=== PATIENT | male | born 1930 | race Caucasian/White ===

== ENCOUNTER 2016-04-22 09:11 | Outpatient (CLI) | payer MEDICARE, OTHER | END 2016-04-22 09:12 | disposition home or self-care (01) | DX: M19.071 Primary osteoarthritis, right ankle and foot (principal) ==

== ENCOUNTER 2017-06-08 08:00 | Outpatient (CLI) | payer MEDICARE, OTHER ==
[2017-06-08 12:40] LABS: BILIRUBIN,URINE NEGATIVE (NEGATIVE); GLUCOSE, URINE (UA) NEGATIVE (NEGATIVE); KETONES,URINE (UA) NEGATIVE (NEGATIVE); LEUKOCYTE ESTERASE, URINE NEGATIVE (NEGATIVE); NITRITE,URINE NEGATIVE (NEGATIVE); OCCULT BLOOD,URINE NEGATIVE (NEGATIVE); PROTEIN,URINE NEGATIVE (NEGATIVE); UROBILINOGEN,URINE 0.2 (NORMAL) E.U./dL (NORMAL)
[2017-06-08 12:42] LABS: CLARITY,URINE CLEAR (CLEAR)
[2017-06-08 12:53] LABS: BASOPHILS % (AUTO) 0.6 %; EOSINOPHILS # (AUTO) 0.3 10^3/uL (0.0-0.7); EOSINOPHILS % (AUTO) 4.9 %; HGB - HEMOGLOBIN 15.1 g/dL (14.0-18.0); LYMPHOCYTES # (AUTO) 1.4 10^3/uL (1.5-3.5); LYMPHOCYTES % (AUTO) 24.9 %; MEAN CORPUSCULAR HEMOGLOBIN 32.5 pg (27.0-31.0); MEAN CORPUSCULAR HGB CONC 33.5 g/dL (32.0-36.0); MEAN CORPUSCULAR VOLUME 97.1 fL (80.0-94.0); MEAN PLATELET VOLUME 8.6 fL (7.4-11.4); MONOCYTES # (AUTO) 0.6 10^3/uL (0.0-1.0); MONOCYTES % (AUTO) 9.8 %; NEUTROPHILS # (AUTO) 3.5 10^3/uL (1.5-6.6); NEUTROPHILS % (AUTO) 59.8 %; PLT - PLATELET COUNT 185 10^3/uL (130-450); RED BLOOD COUNT 4.63 10^6/uL (4.70-6.10); RED CELL DISTRIBUTION WIDTH 14.3 % (12.0-15.0); WHITE BLOOD COUNT 5.8 x10^3/uL (4.8-10.8)
[2017-06-08 13:11] LABS: ALBUMIN 4.2 g/dL (3.2-5.5); ALBUMIN/GLOBULIN RATIO 1.4 (1.0-2.2); ALKALINE PHOSPHATASE 33 IU/L (42-121); ALT ALANINE AMINOTRANSFERASE 16 IU/L (10-60); AST ASPARTATE AMINOTRANSFERASE 26 IU/L (10-42); BILIRUBIN,TOTAL 0.7 mg/dL (0.2-1.0); BUN - BLOOD UREA NITROGEN 35 mg/dL (6-20); CALCIUM 10.1 mg/dL (8.5-10.3); CARBON DIOXIDE - CO2 29 mmol/L (21-32); CHLORIDE 98 mmol/L (101-111); CHOL/HDL RATIO 2.9 (<5.0); CHOLESTEROL 140 mg/dL; CK- CREATINE KINASE 94 IU/L (22-269); CREATININE 1.5 mg/dL (0.6-1.2); GFR - MDRD 45 (>89); GLUCOSE 110 mg/dL (70-100); HDL CHOLESTEROL 49 mg/dL; LDL CHOLESTEROL,CALCULATED 80 mg/dL; LDL/HDL RATIO 1.6 (<3.6); SODIUM 133 mmol/L (135-145); TOTAL PROTEIN 7.3 g/dL (6.7-8.2); VLDL CHOLESTEROL 11 mg/dL
[2017-06-08 13:50] LABS: HB2 TOTAL 16.3 g/dL; HEMOGLOBIN A1C 0.62 g/dL; HEMOGLOBIN A1C % 5.6 % (4.6-6.2)
== END 2017-06-08 08:01 | disposition home or self-care (01) ==
LOC: LAB.N 08:00
PROVIDERS: ATTEND Internal Medicine
DX: I10 Essential (primary) hypertension (principal); H91.90 Unspecified hearing loss, unspecified ear; R01.1 Cardiac murmur, unspecified; K21.9 Gastro-esophageal reflux disease without esophagitis; K57.90 Diverticulosis of intestine, part unspecified, without perforation or abscess without bleeding; N40.0 Benign prostatic hyperplasia without lower urinary tract symptoms; E78.5 Hyperlipidemia, unspecified; R73.9 Hyperglycemia, unspecified; C80.1 Malignant (primary) neoplasm, unspecified; Z79.899 Other long term (current) drug therapy
CPT/HCPCS: 36415; 80053; 80061; 81001; 81003; 82550; 83036; 83721; 84443; 85025; 87086

== ENCOUNTER 2017-07-04 14:26 | Outpatient (CLI) | payer MEDICARE, OTHER ==
[2017-07-04 13:37] LABS: PSA FREE 1.54 ng/mL (0.16-2.81)
[2017-07-04 13:44] LABS: PSA TOTAL 4.28 ng/mL (0.000-2.000)
== END 2017-07-04 14:27 | disposition home or self-care (01) ==
LOC: LAB.N 14:26
PROVIDERS: ATTEND Internal Medicine
DX: Z12.5 Encounter for screening for malignant neoplasm of prostate (principal)
CPT/HCPCS: 36415; 84153; 84154

== ENCOUNTER 2018-09-27 14:52 | Emergency (ER) | payer MEDICARE, OTHER ==
[2018-09-27 15:03] VITALS: BP 163/76
--- NOTE | 2018-09-27 15:19 | ED Physician Documentation ---
History of Present Illness - Stated complaint Stated Complaint: KEEPS FALLING/LOSS OF BALANCE - Chief complaint Chief Complaint: General - History obtained from History obtained from: Patient - History of Present Illness Timing: Other (This is a pretty healthy 87-year-old daiana who lives in a trailer alone. He has noticed for the last month that he has had increasing falls because of poor balance. He has progressed to the point where he says he is falling about every day, but he denies any injuries, he says "every little boy knows how to fall correctly." He denies associated weakness, numbness, t ingling, dizziness, weight loss, headache, incontinence. He started using a cane over the last few days.) Review of Systems Ten Systems: 10 systems reviewed and negative Constitutional: denies: Fever, Chills Throat: denies: Dental pain / toothache, Sore throat Cardiac: denies: Chest pain / pressure, Palpitations Respiratory: denies: Dyspnea, Cough GI: denies: Abdominal Pain, Nausea, Vomiting PD PAST MEDICAL HISTORY - Past Medical History Cardiovascular: Hypertension, High cholesterol - Past Surgical History Past Surgical History: Yes General: Appendectomy - Present Medications Home Medications: Ambulatory Orders Medication Instructions Recorded Confirmed Enalapril [Vasotec] 5 mg PO DAILY 07/24/14 07/24/14 Simvastatin 20 mg PO DAILY 07/24/14 07/24/14 predniSONE [Deltasone] 40 mg PO DAILY 5 Days tablet 07/24/14 - Allergies Allergies/Adverse Reactions: Allergies Allergy/AdvReac Type Severity Reaction Status Date / Time No Known Drug Allergies Allergy Verified 09/27/18 15:02 - Social History Does the pt smoke?: No Smoking Status: Never smoker Does the pt drink ETOH?: No Does the pt have substance abuse?: No - Immunizations Immunizations are current?: Yes PD ED PE NORMAL - Vitals Vital signs reviewed: Yes - General General: Alert and oriented X 3, Other (Slow gait, using a cane.) - HEENT HEENT: PERRL, EOMI - Neck Neck: Supple, no meningeal sign, No bony TTP - Cardiac Cardiac: RRR, No murmur - Respiratory Respiratory: No respiratory distress, Clear bilaterally - Abdomen Abdomen: Soft, Non tender - Back Back: No CVA TTP, No spinal TTP - Derm Derm: Normal color, Warm and dry - Extremities Extremities: Other (Somewhat poor peripheral muscle mass. He has normal eahhyz-it-osko and osje-xw-fkvg testing. 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, No motor deficit, No sensory deficit, Normal speech Results - Vitals Vitals: Vital Signs - 24 hr 09/27/18 14:59 Temperature 36.6 C Heart Rate 90 Respiratory 16 Rate Blood Pressure 163/76 H O2 Saturation 98 Oxygen O2 Source Room air - Labs Labs: Laboratory Tests 09/27/18 09/27/18 15:51 15:51 WBC 6.4 RBC 4.18 L Hgb 13.4 L Hct 39.8 L MCV 95.2 H MCH 32.1 H MCHC 33.7 RDW 14.8 Plt Count 179 MPV 9.1 Neut # (Auto) 4.6 Lymph # (Auto) 1.2 L [place] # (Auto) 0.4 Eos # (Auto) 0.2 Baso # (Auto) 0.0 Absolute Nucleated RBC 0.00 Nucleated RBC % 0.0 Sodium 137 Potassium 3.6 Chloride 105 Carbon Dioxide 21 Anion Gap 11.0 BUN 25 H Creatinine 1.1 Estimated GFR (MDRD) 64 L Glucose 118 H Calcium 9.4 Total Bilirubin 0.8 AST 22 ALT 18 Alkaline Phosphatase 35 L Total Protein 6.8 Albumin 3.9 Globulin 2.9 Albumin/Globulin Ratio 1.3 Lipase 42 - Rads (name of study) CT Head Radiology: EMP read contemporaneously (atrophy NAD) PD MEDICAL DECISION MAKING - ED course ED course: This is an 87-year-old gentleman with progressive balance problems and falls without injury. His neurologic examination is grossly normal as is a head CT and labs today. He is given a walker and emphasized that he needs to follow-up with his primary care physician for further evaluation and treatment. Departure - Departure Disposition: 01 Home, Self Care Clinical Impression: Balance disorder, Falls frequently Condition: Good Record reviewed to determine appropriate education?: Yes Instructions: Falls Risks Prevent, ED Fall Dizziness Weakn Balance Comments: The cause of your symptoms is not clear today. Your CAT scan is without any findings that would be unexpected for your age and your blood work is basically normal. It is common for people of a certain age to have some balance issues, but you do need to follow-up with your physician for further evaluation and treatment. Use the walker until then to prevent any falls. Return if worse.
--- NOTE | 2018-09-27 15:42 | CT Report ---
Reason: falling, unbalanced, progressive Procedure Date: 09/27/2018 Accession Number: [id number] / [id number] Procedure: CT - HEAD WO CPT Code: FULL RESULT: EXAM: CT HEAD EXAM DATE: 09/27/2018 03:24 PM. CLINICAL HISTORY: Falling, unbalanced, progressive. Increasing falls for 1 month. Fall today. COMPARISON: None. TECHNIQUE: Multiaxial CT images were obtained from the foramen magnum to the vertex. Reformats: Sagittal and coronal. IV contrast: None. In accordance with CT protocol optimization, one or more of the following dose reduction techniques were utilized for this exam: automated exposure control, adjustment of mA and/or KV based on patient size, or use of iterative reconstructive technique. FINDINGS: Parenchyma: No intraparenchymal hemorrhage. No evidence of mass, midline shift, or CT findings of infarction. Engel-white differentiation is distinct. Age-related atrophy is present. Mild periventricular white matter hypodensity is noted. Extraaxial Spaces: Normal for age. No subdural or epidural collections identified. Ventricles: Age-related prominence to the ventricular system is seen. No hydrocephalus. Sinuses and Orbits: Imaged paranasal sinuses, orbits, and mastoids show no significant abnormality. Bones: No evidence of fracture or calvarial defect. Other: Mild vascular calcification is seen in the intracranial ICA. IMPRESSION: 1. No acute intracranial abnormality. 2. Senescent change. Age-related atrophy. Mild periventricular white matter hypodensity. This is nonspecific. This can be seen secondary to small vessel ischemic change. RADIA
[2018-09-27 15:55] LABS: BASOPHILS % (AUTO) 0.6 %; EOSINOPHILS # (AUTO) 0.2 10^3/uL (0.0-0.7); EOSINOPHILS % (AUTO) 3.3 %; HGB - HEMOGLOBIN 13.4 g/dL (14.0-18.0); LYMPHOCYTES # (AUTO) 1.2 10^3/uL (1.5-3.5); LYMPHOCYTES % (AUTO) 17.9 %; MEAN CORPUSCULAR HEMOGLOBIN 32.1 pg (27.0-31.0); MEAN CORPUSCULAR HGB CONC 33.7 g/dL (32.0-36.0); MEAN CORPUSCULAR VOLUME 95.2 fL (80.0-94.0); MEAN PLATELET VOLUME 9.1 fL (7.4-11.4); MONOCYTES # (AUTO) 0.4 10^3/uL (0.0-1.0); MONOCYTES % (AUTO) 6.8 %; NEUTROPHILS # (AUTO) 4.6 10^3/uL (1.5-6.6); NEUTROPHILS % (AUTO) 70.9 %; PLT - PLATELET COUNT 179 10^3/uL (130-450); RED BLOOD COUNT 4.18 10^6/uL (4.70-6.10); RED CELL DISTRIBUTION WIDTH 14.8 % (12.0-15.0); WHITE BLOOD COUNT 6.4 x10^3/uL (4.8-10.8)
[2018-09-27 16:09] LABS: ALBUMIN 3.9 g/dL (3.2-5.5); ALBUMIN/GLOBULIN RATIO 1.3 (1.0-2.2); BILIRUBIN,TOTAL 0.8 mg/dL (0.2-1.0); CALCIUM 9.4 mg/dL (8.5-10.3); CREATININE 1.1 mg/dL (0.6-1.2); TOTAL PROTEIN 6.8 g/dL (6.7-8.2)
== END 2018-09-27 16:55 | disposition home or self-care (01) ==
LOC: ED 14:52
DX: R26.81 Unsteadiness on feet (principal); Z91.81 History of falling; I10 Essential (primary) hypertension
CPT/HCPCS: 36415; 70450; 80053; 83690; 85025; 99282; 99284

== ENCOUNTER 2018-10-04 10:48 | Emergency (ER) | payer MEDICARE, OTHER ==
--- NOTE | 2018-10-04 11:54 | ED Physician Documentation ---
PD HPI Fall - Stated complaint Stated Complaint: GLF - Chief complaint Chief Complaint: General - History obtained from History obtained from: Patient, Family - History of Present Illness Mechanism of injury: Lost balance Fall distance: Sitting position Where [place] Timing - onset: How many hours ago (1) Injury(ies) location: Head Similar symptoms before: No diagnosis (History of poor balance with frequent falls.) Recently seen: Emergency Dept (One week ago.) - Additional information Additional information: The patient is an 87-year-old male who [place] he lost his balance while trying to stand up, and fell backwards hitting his head. He did not lose consciousness and has been ambulatory since the incident occurred. He normally uses a cane to assist with ambulation. He denies headache, neck pain, chest pain or shortness of breath. He denies nausea or vomiting. He has a history of poor balance with frequent falls. He was seen in the emergency department one week ago after falling, and was prescribed a walker at that time. He does not use the walker because it is too hard to maneuver in the sand while [place] dog at the beach. Head CT last week revealed cerebral atrophy, without acute findings. He is not on blood thinner medication. The incident this morning occurred about 10 minutes after he had been emotionally upset about a amusement park entertainer reprimanding him for having his dog off the leash. Review of Systems Constitutional: denies: Fever, Weight Loss Eyes: denies: Decreased vision Ears: denies: Tinnitus/ringing Nose: denies: Congestion Throat: denies: Sore throat Cardiac: denies: Chest pain / pressure, Palpitations Respiratory: denies: Dyspnea, Cough GI: denies: Abdominal Pain, Nausea, Vomiting : denies: Dysuria, Incontinent Skin: denies: Rash, Abrasion (s) Musculoskeletal: denies: Neck pain, Back pain, Extremity pain Neurologic: reports: Other (Chronic difficulty maintaining balance.). denies: Focal weakness, Numbness, Confused, Headache, LOC PD PAST MEDICAL HISTORY - Past Medical History Cardiovascular: Hypertension, High cholesterol - Past Surgical History Past Surgical History: Yes General: Appendectomy - Present Medications Home Medications: Ambulatory Orders Medication Instructions Recorded Confirmed Enalapril [Vasotec] 5 mg PO DAILY 07/24/14 07/24/14 Simvastatin 20 mg PO DAILY 07/24/14 07/24/14 predniSONE [Deltasone] 40 mg PO DAILY 5 Days tablet 07/24/14 - Allergies Allergies/Adverse Reactions: Allergies Allergy/AdvReac Type Severity Reaction Status Date / Time No Known Drug Allergies Allergy Verified 10/04/18 10:54 - Social History Does the pt smoke?: No Smoking Status: Never smoker Does the pt drink ETOH?: No Does the pt have substance abuse?: No - Immunizations Immunizations are current?: Yes PD ED PE NORMAL - Vitals Vital signs reviewed: Yes (hypertensive) - General General: Alert and oriented X 3, Well developed/nourished - HEENT HEENT: Atraumatic, PERRL, EOMI, Moist mucous membranes, Pharynx benign - Neck Neck: Supple, no meningeal sign, No bony TTP, No JVD - Cardiac Cardiac: RRR, Other (Heart murmur noted.) - Respiratory Respiratory: No respiratory distress, Clear bilaterally - Abdomen Abdomen: Soft, Non tender - Back Back: No CVA TTP, No spinal TTP - Derm Derm: No rash - Extremities Extremities: No tenderness to palpate, No edema, No calf tenderness / cord - Neuro Neuro: Alert and oriented X 3, No motor deficit, No sensory deficit, Normal speech, Other (Intact finger to nose and heel to maldonado.) Eye Opening: Spontaneous Motor: Obeys Commands Verbal: Oriented GCS Score: 15 Results - Vitals Vitals: Oxygen O2 Source Room air - EKG (time done) 12:03 Rate: Rate (enter#) (94) Rhythm: NSR, LAE Intervals: Prolonged MT, RBBB (incomplete) Ischemia: Q waves (in leads III and aVF, consistent with old inferior CT.) Compare to prior EKG: Old EKG unavailable Computer interpretation: Agree with computer - Labs Labs: Laboratory Tests 10/04/18 10/04/18 10/04/18 12:06 12:06 12:56 WBC 5.9 RBC 4.39 L Hgb 14.5 Hct 41.5 L MCV 94.5 H MCH 33.0 H MCHC 34.9 RDW 14.6 Plt Count 185 MPV 9.4 Neut # (Auto) 4.3 Lymph # (Auto) 1.0 L [place] # (Auto) 0.5 Eos # (Auto) 0.1 Baso # (Auto) 0.0 Absolute Nucleated RBC 0.00 Nucleated RBC % 0.0 Sodium 137 Potassium 3.5 Chloride 102 Carbon Dioxide 22 Anion Gap 13.0 BUN 22 H Creatinine 1.2 Estimated GFR (MDRD) 58 L Glucose 103 H Calcium 9.8 Total Bilirubin 0.5 AST 23 ALT 17 Alkaline Phosphatase 36 L Total Protein 6.8 Albumin 4.0 Globulin 2.8 Albumin/Globulin Ratio 1.4 Lipase 45 Urine Color YELLOW Urine Clarity CLEAR Urine pH 6.0 Ur Specific [place] 1.010 Urine Protein 30 H Urine Glucose (UA) NEGATIVE Urine Ketones TRACE Urine Occult Blood NEGATIVE Urine Nitrite NEGATIVE Urine Bilirubin NEGATIVE Urine Urobilinogen 0.2 (NORMAL) Ur Leukocyte Esterase NEGATIVE Urine RBC 0-5 Urine WBC 0-3 Ur Squamous Epith Cells NONE SEEN Urine Bacteria None Seen Ur Microscopic Review INDICATED Urine Culture Comments NOT INDICATED PD MEDICAL DECISION MAKING - ED course Complexity details: reviewed old records, reviewed results, re-evaluated patient, considered differential, d/w patient ED course: The patient's presentation is significant for poor balance with a fall, hitting his head. No acute neurologic deficits are detected at this time. I considered head CT but no headache, no change in mental status or neurologic exam, I do not think a repeat head CT is absolutely necessary. He had head CT one week ago after a similar fall, and it revealed no acute abnormality. He prefers not to undergo repeat CT scan, and I think that is reasonable. He is not on any blood thinner medication. Electrocardiogram reveals no acute findings. His CBC, chemistry panel, and urinalysis are unremarkable. Treatment in the emergency department included administration of normal saline 1 L IV. He demonstrated ability to ambulate with the assistance of his cane. Friends who are with him state that his ambulation appears unchanged from his baseline. I discussed with the patient and his friends that a quad cane may be of better assistance with helping to steady his gait. I discussed with them outpatient follow-up, as well as potentially worrisome signs or symptoms that should prompt reevaluation in the emergency department. Departure - Departure Disposition: 01 Home, Self Care Clinical Impression: Falls frequently, Balance disorder Condition: Stable Instructions: ED Fall Dizziness Weakn Balance Follow-Up: Oneyda Hogan MD [Primary Care Provider] - Comments: Use the quad cane to help with your balance when walking. Follow-up with your primary physician within 1 to 2 weeks. Call to schedule appointment. Return to the emergency department if you develop progressive difficulty with balance, or otherwise worsening symptoms. Discharge Date/Time: 10/04/18 14:53
[2018-10-04 12:11] LABS: BASOPHILS % (AUTO) 0.3 %; EOSINOPHILS # (AUTO) 0.1 10^3/uL (0.0-0.7); EOSINOPHILS % (AUTO) 0.9 %; HGB - HEMOGLOBIN 14.5 g/dL (14.0-18.0); LYMPHOCYTES % (AUTO) 17.4 %; MEAN CORPUSCULAR HGB CONC 34.9 g/dL (32.0-36.0); MEAN CORPUSCULAR VOLUME 94.5 fL (80.0-94.0); MEAN PLATELET VOLUME 9.4 fL (7.4-11.4); MONOCYTES # (AUTO) 0.5 10^3/uL (0.0-1.0); MONOCYTES % (AUTO) 8.3 %; NEUTROPHILS # (AUTO) 4.3 10^3/uL (1.5-6.6); NEUTROPHILS % (AUTO) 72.9 %; PLT - PLATELET COUNT 185 10^3/uL (130-450); RED BLOOD COUNT 4.39 10^6/uL (4.70-6.10); RED CELL DISTRIBUTION WIDTH 14.6 % (12.0-15.0); WHITE BLOOD COUNT 5.9 x10^3/uL (4.8-10.8)
[2018-10-04 12:23] LABS: ALBUMIN/GLOBULIN RATIO 1.4 (1.0-2.2); BILIRUBIN,TOTAL 0.5 mg/dL (0.2-1.0); CALCIUM 9.8 mg/dL (8.5-10.3); CREATININE 1.2 mg/dL (0.6-1.2); TOTAL PROTEIN 6.8 g/dL (6.7-8.2)
[2018-10-04] MEDS ORDERED: SODIUM CHLORIDE 0.9% 1,000 ML IV ONE (12:48)
[2018-10-04 13:23] VITALS: BP 147/88
[2018-10-04 13:37] LABS: BILIRUBIN,URINE NEGATIVE (NEGATIVE); GLUCOSE, URINE (UA) NEGATIVE (NEGATIVE); KETONES,URINE (UA) TRACE mg/dL (NEGATIVE); LEUKOCYTE ESTERASE, URINE NEGATIVE (NEGATIVE); NITRITE,URINE NEGATIVE (NEGATIVE); OCCULT BLOOD,URINE NEGATIVE (NEGATIVE); PROTEIN,URINE 30 mg/dL (NEGATIVE); UROBILINOGEN,URINE 0.2 (NORMAL) E.U./dL (NORMAL)
[2018-10-04 13:47] LABS: CLARITY,URINE CLEAR (CLEAR)
[2018-10-04 13:53] LABS: BACTERIA,URINE None Seen /HPF (None Seen); RBC,URINE 0-5 /HPF (0-5); SQUAMOUS EPITHELIAL CELL,UR NONE SEEN (<= Few)
== END 2018-10-04 14:53 | disposition home or self-care (01) ==
LOC: ED 10:48
DX: S09.90XA Unspecified injury of head, initial encounter (principal); W01.198A Fall on same level from slipping, tripping and stumbling with subsequent striking against other object, initial encounter; Y93.89 Activity, other specified; Y92.832 Beach as the place of occurrence of the external cause; R26.81 Unsteadiness on feet; Z91.81 History of falling; I10 Essential (primary) hypertension; I45.10 Unspecified right bundle-branch block; I44.0 Atrioventricular block, first degree
CPT/HCPCS: 36415; 80053; 81001; 81003; 83690; 85025; 87086; 93005; 96360; 99284

== ENCOUNTER 2018-10-25 17:18 | Outpatient (CLI) | payer MEDICARE, OTHER | END 2018-10-25 17:19 | disposition critical access hospital (66) | LOC: EMS 17:18 | PROVIDERS: ATTEND Surgery | DX: R53.1 Weakness (principal); W18.39XA Other fall on same level, initial encounter; Y92.038 Other place in apartment as the place of occurrence of the external cause | CPT/HCPCS: A0425; A0429 ==

== ENCOUNTER 2018-10-25 17:39 | Emergency (ER) | payer MEDICARE, OTHER ==
[2018-10-25] MEDS ORDERED: ACETAMINOPHEN 325 MG TABLET PO STA (17:51)
--- NOTE | 2018-10-25 17:52 | ED Physician Documentation ---
PD HPI MAJOR TRAUMA - Stated complaint Stated Complaint: FALL - Chief complaint Chief Complaint: Trauma Ch/Bk - History obtained from History obtained from: Patient - History of Present Illness Mechanism of injury: Fell (This is an 88-year-old gentleman has been frequently falling over the last few months. Sometimes uses a cane sometimes uses a walker. This is his third visit to the emergency department in about a month for a fall. He fell today, he does not know why he fell. He thinks he may have hit his head but is not sure. His only other complaint is low back pain. He lives alone. He has seen his physician in the interim and it looks like an MRI of the brain is ordered to be done in a couple of days from now.) Review of Systems Ten Systems: 10 systems reviewed and negative Constitutional: reports: Weight Loss. denies: Fever, Chills Nose: denies: Rhinorrhea / runny nose, Congestion Cardiac: denies: Chest pain / pressure, Palpitations Respiratory: denies: Dyspnea, Cough GI: denies: Abdominal Pain, Nausea, Vomiting PD PAST MEDICAL HISTORY - Past Medical History Cardiovascular: Hypertension, High cholesterol - Past Surgical History Past Surgical History: Yes General: Appendectomy - Present Medications Home Medications: Ambulatory Orders Medication Instructions Recorded Confirmed Enalapril [Vasotec] 20 mg PO DAILY 07/24/14 07/24/14 RX: hydroCHLOROthiazide 25 mg PO 10/25/18 10/25/18 [Hydrochlorothiazide] - Allergies Allergies/Adverse Reactions: Allergies Allergy/AdvReac Type Severity Reaction Status Date / Time No Known Drug Allergies Allergy Verified 10/25/18 17:47 - Social History Does the pt smoke?: No Smoking Status: Never smoker Does the pt drink ETOH?: No Does the pt have substance abuse?: No - Immunizations Immunizations are current?: Yes PD ED PE NORMAL - Vitals Vital signs reviewed: Yes - General General: No acute distress, Well developed/nourished - HEENT HEENT: PERRL, EOMI - Neck Neck: Supple, no meningeal sign, No bony TTP - Cardiac Cardiac: RRR, No murmur - Respiratory Respiratory: No respiratory distress, Clear bilaterally - Abdomen Abdomen: Soft, Non tender - Back Back: Other (Mild tenderness of the lumbar spine) - Derm Derm: Normal color, Warm and dry - Extremities Extremities: Other (Shallow scrapes on the dorsum of both hands, no tenderness) - Neuro Neuro: No motor deficit, No sensory deficit, Normal speech, Other (Normal fi muff-fo-mlrw and hezb-mw-nhwb testing) Eye Opening: Spontaneous Motor: Obeys Commands Verbal: Confused GCS Score: 14 Results - Vitals Vitals: Vital Signs - 24 hr 10/25/18 10/25/18 10/25/18 17:45 19:13 20:18 Temperature 37.4 C Heart Rate 84 78 Respiratory 18 17 16 Rate Blood Pressure 166/89 H 167/86 H O2 Saturation 97 98 10/25/18 10/25/18 10/25/18 20:20 21:19 21:42 Temperature 36.8 C Heart Rate 75 79 73 Respiratory 16 17 16 Rate Blood Pressure 140/88 H 178/84 H 153/83 H O2 Saturation 99 96 98 Oxygen O2 Source Room air - Labs Labs: Laboratory Tests 10/25/18 10/25/18 17:58 17:58 WBC 6.5 RBC 4.43 L Hgb 14.2 Hct 42.1 MCV 95.0 H MCH 32.1 H MCHC 33.7 RDW 14.0 Plt Count 218 MPV 9.7 Neut # (Auto) 5.0 Lymph # (Auto) 0.8 L [place] # (Auto) 0.6 Eos # (Auto) 0.0 Baso # (Auto) 0.0 Absolute Nucleated RBC 0.00 Nucleated RBC % 0.0 Sodium 137 Potassium 3.5 Chloride 99 L Carbon Dioxide 25 Anion Gap 13.0 BUN 21 H Creatinine 1.2 Estimated GFR (MDRD) 57 L Glucose 111 H Calcium 9.8 Total Bilirubin 0.8 AST 29 ALT 21 Alkaline Phosphatase 43 Total Protein 6.8 Albumin 3.8 Globulin 3.0 Albumin/Globulin Ratio 1.3 Lipase 41 Ethyl Alcohol < 5.0 - Rads (name of study) CT chest without contrast Radiology: EMP read contemporaneously (Acute mildly displaced fractures of the left lateral ninth 10th 11th and 12th ribs, atelectasis, emphysema, moderate debris in the esophagus with small hiatal hernia. Three-vessel coronary artery calcification. 2.7 cm exophytic mass from the left kidney) CT of the head and C-spine without contrast Radiology: EMP read contemporaneously (NAD) CT of the lumbar spine Radiology: EMP read contemporaneously (Left 11th and 12th posterior rib fractures, market degenerative facet disease at L4-L5 with fragmentation of the right facet joint, could be acute fracture versus chronic change. Scoliosis with multiple level degenerative disc disease, moderate stenosis) PD MEDICAL DECISION MAKING - ED course ED course: 88-year-old gentleman with frequent falls, he fell tonight injuring his back. Imaging demonstrates 4 rib fractures and a possible Fracture of the right L4-L5 facet joint. Given the injuries and advanced age I recommended transfer to [facility]. Patient was hesitant and thinking about it. Patient eventually agreed to go to [facility]. He was accepted by Dr. Mario Mcqueen to [facility] at 9:15 PM. Patient did become a little belligerent, it was clear that he did not have decision-making capacity to refuse to go to [facility]. For example when I asked him what his injuries were that I told him just a few minutes before he was very confused. He did not know what hospital he is in. Departure - Departure Disposition: 02 Transfer Acute Care Hosp Clinical Impression: Multiple rib fractures, Closed L4 vertebral fracture, Frequent falls, Renal mass Condition: Serious
[2018-10-25 18:06] LABS: BASOPHILS % (AUTO) 0.3 %; EOSINOPHILS % (AUTO) 0.5 %; HGB - HEMOGLOBIN 14.2 g/dL (14.0-18.0); LYMPHOCYTES # (AUTO) 0.8 10^3/uL (1.5-3.5); LYMPHOCYTES % (AUTO) 12.2 %; MEAN CORPUSCULAR HEMOGLOBIN 32.1 pg (27.0-31.0); MEAN CORPUSCULAR HGB CONC 33.7 g/dL (32.0-36.0); MEAN PLATELET VOLUME 9.7 fL (7.4-11.4); MONOCYTES # (AUTO) 0.6 10^3/uL (0.0-1.0); MONOCYTES % (AUTO) 9.6 %; NEUTROPHILS % (AUTO) 76.9 %; PLT - PLATELET COUNT 218 10^3/uL (130-450); RED BLOOD COUNT 4.43 10^6/uL (4.70-6.10); WHITE BLOOD COUNT 6.5 x10^3/uL (4.8-10.8)
[2018-10-25 18:18] LABS: ALBUMIN 3.8 g/dL (3.2-5.5); ALBUMIN/GLOBULIN RATIO 1.3 (1.0-2.2); ALKALINE PHOSPHATASE 43 IU/L (42-121); ALT ALANINE AMINOTRANSFERASE 21 IU/L (10-60); AST ASPARTATE AMINOTRANSFERASE 29 IU/L (10-42); BILIRUBIN,TOTAL 0.8 mg/dL (0.2-1.0); BUN - BLOOD UREA NITROGEN 21 mg/dL (6-20); CALCIUM 9.8 mg/dL (8.5-10.3); CARBON DIOXIDE - CO2 25 mmol/L (21-32); CHLORIDE 99 mmol/L (101-111); CREATININE 1.2 mg/dL (0.6-1.2); GFR - MDRD 57 (>89); GLUCOSE 111 mg/dL (70-100); LIPASE 41 U/L (22-51); SODIUM 137 mmol/L (135-145); TOTAL PROTEIN 6.8 g/dL (6.7-8.2)
--- NOTE | 2018-10-25 18:30 | CT Report ---
Reason: head inj Procedure Date: 10/25/2018 Accession Number: [id number] / [id number] Procedure: CT - HEAD WO CPT Code: FULL RESULT: EXAM: CT HEAD EXAM DATE: 10/25/2018 06:20 PM. CLINICAL HISTORY: Trauma, pain. COMPARISON: HEAD W/O 09/27/2018 3:24 PM. TECHNIQUE: Multiaxial CT images were obtained from the foramen magnum to the vertex. Reformats: Sagittal and coronal. IV contrast: None. In accordance with CT protocol optimization, one or more of the following dose reduction techniques were utilized for this exam: automated exposure control, adjustment of mA and/or KV based on patient size, or use of iterative reconstructive technique. FINDINGS: Parenchyma: No intraparenchymal hemorrhage. No evidence of mass, midline shift, or CT findings of acute infarction. Engel-white differentiation is distinct. Diffuse chronic microangiopathic white matter changes Extraaxial Spaces: Normal for age. No subdural or epidural collections. Ventricles: The ventricles and cortical sulci are enlarged, consistent with age-related tissue loss. Sinuses and orbits: Imaged paranasal sinuses, orbits, and mastoids show no significant abnormality. Bones: Unremarkable. Other: None. IMPRESSION: Generalized age-related cortical atrophic changes without evidence of acute intracranial abnormality. RADIA
--- NOTE | 2018-10-25 18:40 | CT Report ---
Reason: back inj Procedure Date: 10/25/2018 Accession Number: [id number] / [id number] Procedure: CT - LUMBAR SPINE WO CPT Code: FULL RESULT: EXAM: CT LUMBAR SPINE WITHOUT CONTRAST EXAM DATE: 10/25/2018 06:20 PM. CLINICAL HISTORY: Fall, pain. COMPARISONS: LUMBAR SPINE W/O 10/25/2018 6:13 PM. TECHNIQUE: Thin-section axial images were acquired of the lumbar spine from T12 to S1 without contrast. Post-processing: Coronal and sagittal reformats. Other: None. In accordance with CT protocol optimization, one or more of the following dose reduction techniques were utilized for this exam: automated exposure control, adjustment of mA and/or KV based on patient size, or use of iterative reconstructive technique. FINDINGS: Alignment: Mild scoliosis. Grade 1 degenerative retrolistheses of L2 and L3 and anterolisthesis of L4. Bones: 5 lumbar vertebrae. Osteopenia. Fractures of the left 11th and 12th posterior ribs. No other definite fracture or bone lesion. Fragmentation in the right L4-L5 facet joint, acute versus chronic. No other definite fracture or bone lesion. Disk Levels/Facets: Disk space narrowing at all visualized levels with vacuum phenomenon. Narrowing worst at L2-L3. Degenerative changes in the facets, worst at L4-L5. Diffuse disk bulge at L3-L4 resulting in moderate canal stenosis. Diffuse disk bulge at L4-L5 resulting in moderate canal stenosis. Musculature: Unremarkable. Other: The visualized retroperitoneum is unremarkable. IMPRESSION: 1. Left 11th and 12th rib fractures. 2. Marked degenerative facet disease at L4-L5 with fragmentation in the right facet joint, acute fracture versus chronic changes. 3. Scoliosis with multilevel degenerative disk disease, with moderate canal stenoses at L3-L4 and L4-L5. RADIA
--- NOTE | 2018-10-25 19:10 | CT Report ---
Reason: head inj Procedure Date: 10/25/2018 Accession Number: [id number] / [id number] Procedure: CT - CERVICAL SPINE WO CPT Code: FULL RESULT: EXAM: CT CERVICAL SPINE WITHOUT CONTRAST DATE: 10/25/2018 06:20 PM. HISTORY: Fall, pain. COMPARISONS: None. TECHNIQUE: Thin-section axial images were acquired of the cervical spine without contrast. Post-processing: Coronal and sagittal reformats. Other: None. In accordance with CT protocol optimization, one or more of the following dose reduction techniques were utilized for this exam: automated exposure control, adjustment of mA and/or KV based on patient size, or use of iterative reconstructive technique. FINDINGS: Alignment: No scoliosis. Grade 1 degenerative anterolisthesis of C3 and C4. No definite significant listhesis. Bones: No fracture or bone lesion. Interspace Levels/Facets: Disk space narrowing at C5-C6 and C6-C7. Minimal narrowing at C4-C5. Moderate degenerative changes worst at the C4-C5. Musculature: Unremarkable. Other: The paravertebral and prevertebral soft tissues are unremarkable. Blebs in right apex. Otherwise clear. IMPRESSION: Degenerative and other chronic findings. No acute disease. RADIA
--- NOTE | 2018-10-25 20:27 | CT Report ---
Reason: Eval rib fractures Procedure Date: 10/25/2018 Accession Number: [id number] / [id number] Procedure: CT - CHEST WO CPT Code: FULL RESULT: EXAM: CT CHEST EXAM DATE: 10/25/2018 07:31 PM. CLINICAL HISTORY: Eval rib fractures. History of falls. COMPARISONS: LUMBAR SPINE W/O 10/25/2018 6:13 PM CERVICAL SPINE W/O 10/25/2018 6:09 PM. TECHNIQUE: Routine helical CT imaging was performed through the chest. IV contrast: None. Reconstructions: Coronal and sagittal. In accordance with CT protocol optimization, one or more of the following dose reduction techniques were utilized for this exam: automated exposure control, adjustment of mA and/or KV based on patient size, or use of iterative reconstructive technique. FINDINGS: Lungs/Pleura: Mild centrilobular emphysema. Mild groundglass and reticular atelectasis at the posterior and lateral basilar left lower lobe and inferior lingula. No lobar consolidation, nodule, or generalized interstitial abnormality. Central airways are normal. No pleural fluid or pneumothorax. Mediastinum: Heart size is normal. There is moderate three-vessel coronary artery calcification. There is mild calcification in the normal caliber thoracic aorta. No lymphadenopathy. Lower thyroid gland is unremarkable. There is moderate debris in the esophagus. There is a small hiatal hernia. Bones: There is moderate lower cervical, moderate lower thoracic and upper lumbar degenerative disk disease. There are mildly displaced lateral left ninth, mildly displaced lateral left 10th, mildly displaced posterior left 11th, mildly displaced posterior left 12th rib fractures which appear acute. No other fractures are identified. Visualized Abdomen: There is an isodense mass exophytic from the posterior lower pole of the left kidney. Other: None. IMPRESSION: 1. Acute mildly displaced left lateral ninth, lateral 10th, posterior 11th, and posterior 12th rib fractures. 2. No pleural fluid or pneumothorax. 3. Minimal left lower lobe and lingular atelectasis. 4. Mild centrilobular emphysema. 5. Moderate debris in the esophagus which may reflect gastroesophageal reflux or esophageal dysmotility. There is a small hiatal hernia. 6. Moderate three-vessel coronary artery calcification. 7. 2.7 cm isodense exophytic mass arising from the posterior lower pole of the left kidney. Follow-up renal ultrasound would be of value to determine whether the lesion is solid or cystic. [facility]
[2018-10-25 21:44] VITALS: BP 153/83
[2018-10-25] MEDS ORDERED: LORazepam 2 MG/ML VIAL IVP STA (22:50)
[2018-10-25] MEDS ORDERED: HALOPERIDOL 5 MG/ML VIAL IVP ONE (22:50)
== END 2018-10-25 23:30 | disposition short-term general hospital (02) ==
LOC: EDUNIT# → ED 17:39
DX: S22.42XA Multiple fractures of ribs, left side, initial encounter for closed fracture (principal); S32.049A Unspecified fracture of fourth lumbar vertebra, initial encounter for closed fracture; S60.512A Abrasion of left hand, initial encounter; S60.511A Abrasion of right hand, initial encounter; W18.30XA Fall on same level, unspecified, initial encounter; Z91.81 History of falling; R41.0 Disorientation, unspecified; N28.89 Other specified disorders of kidney and ureter; M51.36 Other intervertebral disc degeneration, lumbar region; M48.061 Spinal stenosis, lumbar region without neurogenic claudication; M41.86 Other forms of scoliosis, lumbar region; M48.02 Spinal stenosis, cervical region; I10 Essential (primary) hypertension; I25.10 Atherosclerotic heart disease of native coronary artery without angina pectoris; J43.2 Centrilobular emphysema; K44.9 Diaphragmatic hernia without obstruction or gangrene
CPT/HCPCS: 36415; 70450; 71250; 72125; 72131; 80053; 83690; 85025; 99285; A9270; 80320